=== PATIENT | male | born 1970 | race Caucasian/White ===

== ENCOUNTER 2017-11-05 10:53 | Day surgery (SDC) | payer OTHER ==
[~2017-11-05 10:53] MED LIST: ACETAMINOPHEN 1,000 MG/100 ML BTL IV ONE
[2017-11-05] MEDS ORDERED: PROPOFOL 10 MG/ML VIAL IV ONE (10:54)
[2017-11-05] MEDS ORDERED: KETOROLAC 30 MG/ML VIAL IVP ONE (10:54)
[2017-11-05] MEDS ORDERED: BUPIVACAINE 0.25% W/EPI MPF 30ML VIAL IVP ONE (10:54)
--- NOTE | 2017-11-06 12:50 | Operative Note ---
DATE OF SURGERY: 11/05/2017 Surgeon: Ethan Henry DO PREOPERATIVE DIAGNOSIS: Torn medial meniscus of the left knee. POSTOPERATIVE DIAGNOSES: 1. Torn medial meniscus of left knee. 2. Chondromalacia medial femoral condyle, left knee. OPERATION: 1. Arthroscopic partial medial meniscectomy, left knee. 2. Arthroscopic chondroplasty medial femoral condyle, left knee. DESCRIPTION OF PROCEDURE: This 47-year-old male was taken to the operating room and placed in the supine position on the operating room table where general anesthesia was induced. The left lower extremity was elevated. It was exsanguinated and the tourniquet inflated to 300 mmHg. Arthroscopic knee lopez applied. Left knee prepped with Hibiclens and draped in the usual sterile fashion. An inferolateral portal was established for the 4 mm arthroscope and initial evaluation of the joint demonstrated normal appearance of the suprapatellar pouch. Patellofemoral articular cartilage appeared normal. The medial compartment was entered and a tear of the medial meniscus was easily identified and probing through an inferomedial portal demonstrated a radial-type tear that extended to the meniscal synovial junction and some horizontal cleavage components also identified there. The apex of the tear being at approximately the 10:30 position. Utilizing the basket forceps, we resected back to the apex of the tear and then tapered both medially and laterally to form a smooth contoured surface. It was then re-probed and confirmed to be stable. The patient had grade 2 chondromalacia of the medial femoral condyle with some softening of the articular cartilage throughout the weightbearing surface but also there were flaps of loose articular cartilage which were present and these were smoothed with a rotating shaver. The intracondylar notch was examined and found to be normal. The lateral compartment was entered and probing of the articular cartilage and meniscus on the lateral side of the joint did not reveal any pathology. The joint was copiously irrigated and suctioned and all areas were again reexamined and no additional findings were present. The joint was suctioned. The instruments were removed. The portals infiltrated with 0.25% Marcaine with epinephrine. Sterile dressings applied. Tourniquet and knee lopez released and the patient taken to the recovery room in satisfactory condition. GROSS PATHOLOGY: A complex tear of the posterior horn of the medial meniscus was present which extended to the meniscal synovial junction with the apex at about the 10:30 position. In addition, grade 2 chondromalacia of the entire weightbearing surface of the medial femoral condyle was present but it was slightly more severe on the lateral half of the medial femoral condyle. The knee was otherwise unremarkable. MTDD
== END 2017-11-05 14:00 | disposition home or self-care (01) ==
LOC: SUR 10:53
PROVIDERS: ATTEND Orthopaedic Surgery
DX: M23.222 Derangement of posterior horn of medial meniscus due to old tear or injury, left knee (principal)
CPT/HCPCS: 29881; 01400; J1885